=== PATIENT | male | born 1985 | race Two or more races ===

== ENCOUNTER 2018-09-21 10:25 | Emergency (ER) | payer SELFPAY ==
[~2018-09-21] VITALS: Ht 177.8 cm; Wt 113.4 kg
[2018-09-21 10:35] VITALS: BP 160/88
[2018-09-21] MEDS ORDERED: SULF1TAB24 PO (10:42)
--- NOTE | 2018-09-21 10:43 | PHYS DOC ---
Adult General Chief Complaint Chief Complaint: WOUND CHECK HPI HPI Patient is a 32 year old male who presents with an abscess that self drained last night. He states that he been doing hot compresses at home. He states that there was an area of pus that opened up. Today when he awakened it was still very painful and there is hard red area to his groin. He denies fever, nausea or vomiting. (SAMARA SOOD APRN) Review of Systems Review of Systems Constitutional: Denies fever or chills [] Respiratory: Denies cough or shortness of breath [] Cardiovascular: No additional information not addressed in HPI [] GI: Denies abdominal pain, nausea, vomiting, bloody stools or diarrhea [] : Denies dysuria or hematuria [] Musculoskeletal: Denies back pain or joint pain [] Integument: See history of present illness Neurologic: Denies headache, focal weakness or sensory changes [] Endocrine: Denies polyuria or polydipsia [] All other systems were reviewed and found to be within normal limits, except as documented in this note. (SAMARA SOOD APRN) Allergies Allergies Allergies Coded Allergies Type Severity Reaction Last Updated Verified No Known Drug Allergies 09/21/18 No (ROSA CABRERA MD) Physical Exam Physical Exam Constitutional: Well developed, well nourished, no acute distress, non-toxic appearance. [] Cardiovascular:Heart rate regular rhythm, no murmur [] Lungs & Thorax: Bilateral breath sounds clear to auscultation [] Abdomen: Bowel sounds normal, soft, no tenderness, no masses, no pulsatile masses. [] Skin: There is a 2.5 cm area of induration that is erythematous to the left pubis, there is no fluctuance Back: No tenderness, no CVA tenderness. [] Extremities: No tenderness, no cyanosis, no clubbing, ROM intact, no edema. [] Neurologic: Alert and oriented X 3, normal motor function, normal sensory function, no focal deficits noted. [] Psychologic: Affect normal, judgement normal, mood normal. [] (SAMARA SOOD APRN) Current Patient Data Vital Signs Vital Signs Date Time Temp Pulse Resp B/P (MAP) Pulse Ox O2 Delivery O2 Flow Rate FiO2 09/21/18 10:35 97.8 77 18 160/88 (112) 99 Room Air 97.8 (ROSA CABRERA MD) EKG EKG [] (SAMARA SOOD APRN) Radiology/Procedures Radiology/Procedures [] (SAMARA SOOD APRN) Course & Med Decision Making Course & Med Decision Making Pertinent Labs and Imaging studies reviewed. (See chart for details) [] (SAMARA SOOD APRN) Course & Med Decision Making Staff Physician Addendum: I was working in the ER during the course of this patient's visit. I was available for consultation as needed, but I was not directly involved in the care of this patient. (ROSA CABRERA MD) Dragon Disclaimer Dragon Disclaimer This electronic medical record was generated, in whole or in part, using a voice recognition dictation system. (SAMARA SOOD APRN) Departure Departure Impression: Primary Impression: Abscess Disposition: HOME, SELF-CARE Condition: STABLE Referrals: NO PCP (PCP) Patient Instructions: Abscess, Cellulitis Additional Instructions: Take the antibiotic as directed. Continue to use hot compresses multiple times daily. Keep close eye on the abscess. If it is greatly worsening return to the emergency department. Otherwise, follow-up with your primary care provider in 4 days if not improving. Scripts Sulfamethoxazole/Trimethoprim (BACTRIM DS TABLET) 1 Each Tablet 1 TAB PO BID for cellulitis, #20 TAB Prov: SAMARA SOOD APRN 09/21/18 SAMARA SOOD APRN Sep 21, 2018 10:43 ROSA CABRERA MD Sep 21, 2018 17:56
== END 2018-09-21 10:47 | disposition home or self-care (01) ==
LOC: ER 10:25
DX: L02.214 Cutaneous abscess of groin (principal)
CPT/HCPCS: 99283